=== PATIENT | male | born 2000 | race Caucasian/White ===

== ENCOUNTER 2021-06-29 23:43 | Emergency (ER) | payer OTHER ==
[2021-06-30] MEDS ORDERED: predniSONE 20 MG TAB ONE (00:15)
[2021-06-30] MEDS ORDERED: Ventolin HFA Inhaler 60 PUFF INHALER INH SCH (00:30)
[2021-06-30 14:45] LABS: SARS-CoV-2 PCR by NAA Not Detected (NotDetected)
== END 2021-06-30 01:25 | disposition home or self-care (01) ==
LOC: CSHERS 23:43
DX: R05.9 Cough, unspecified (principal); R07.81 Pleurodynia; Z20.822 Contact with and (suspected) exposure to COVID-19; F17.290 Nicotine dependence, other tobacco product, uncomplicated
CPT/HCPCS: 71045; 93005; J7512; U0003; U0005

== ENCOUNTER 2021-07-10 16:43 | Emergency (ER) | payer OTHER ==
[2021-07-10] MEDS ORDERED: Amoxicillin/Potassium Clav 875 MG TAB ONE (17:38)
[2021-07-10] MEDS ORDERED: Benzonatate 100 MG CAP ONE (17:38)
== END 2021-07-10 18:11 | disposition home or self-care (01) ==
LOC: CSHERS 16:43
DX: H66.91 Otitis media, unspecified, right ear (principal); B34.9 Viral infection, unspecified; F17.210 Nicotine dependence, cigarettes, uncomplicated; F17.290 Nicotine dependence, other tobacco product, uncomplicated
CPT/HCPCS: 71046

== ENCOUNTER 2023-05-23 13:03 | Emergency (ER) | payer OTHER | END 2023-05-23 15:51 | disposition home or self-care (01) | LOC: CSHERS 13:03 | DX: S06.0X0A Concussion without loss of consciousness, initial encounter (principal); F17.290 Nicotine dependence, other tobacco product, uncomplicated; W22.8XXA Striking against or struck by other objects, initial encounter; W17.89XA Other fall from one level to another, initial encounter | CPT/HCPCS: 70450; 99283 ==

== ENCOUNTER 2024-07-25 16:00 | Emergency (ER) | payer OTHER ==
[2024-07-25] MEDS ORDERED: Boostrix 0.5 ML (Tdap) VIAL (>/=7 yrs of age) ONE (17:03)
[2024-07-25] MEDS ORDERED: Ketorolac Tromethamine 30 MG (1 mL) VIAL ONE (17:21)
== END 2024-07-25 18:07 | disposition home or self-care (01) ==
LOC: CSHERS 16:00
DX: S61.151A Open bite of right thumb with damage to nail, initial encounter (principal); R00.0 Tachycardia, unspecified; F17.290 Nicotine dependence, other tobacco product, uncomplicated; Z23 Encounter for immunization; W54.1XXA Struck by dog, initial encounter
CPT/HCPCS: 90471; 90715; 96372; J1885